=== PATIENT | male | born 1965 | race Caucasian/White ===

== ENCOUNTER 2018-09-17 05:29 | Observation (INO) | payer BC ==
--- NOTE | 2018-09-10 17:04 | HP ---
PREOPERATIVE HISTORY AND PHYSICAL: DATE OF ADMISSION/SURGERY: 09/17/18 DATE OF OFFICE VISIT: 09/05/18 ATTENDING SURGEON: Dr. Anastacia Ro.* (DICTATED BY GRACIELA LYNN) PROCEDURE: Left total shoulder replacement. CHIEF COMPLAINT: Left shoulder. HISTORY OF PRESENT ILLNESS: Jeffery is a 53-year-old male who presents to the clinic for complicated left shoulder history and pain due to osteoarthritis. He has failed conservative measures and therefore agreed to undergo a left total shoulder replacement with Dr. Ro on 09/17/18. PAST MEDICAL HISTORY: No current problems. PAST SURGICAL HISTORY: Left shoulder surgery x3. The patient denies prior complications with anesthesia. MEDICATIONS: None. ALLERGIES: No known drug allergies. FAMILY HISTORY: Denies pertinent family history. SOCIAL HISTORY: He lives with his spouse. He works as a proprietary trader. He denies tobacco use. He reports occasional alcohol consumption. He exercises regularly. He is right-hand dominant. REVIEW OF SYSTEMS: A 14-point review of systems was reviewed with the patient. Positive for current complaint, otherwise negative. Denies fever, chills, chest pain, shortness of breath, history of DVT or PE, history of bleeding disorder. PHYSICAL EXAMINATION GENERAL: A 53-year-old well-developed, well-nourished male, in no acute distress. Alert and oriented x3. Appropriate mood and affect. VITAL SIGNS: Height 74, weight 188, pulse 72, blood pressure 118/70, respiratory rate 12, BMI 24.1. HEENT: Normocephalic, atraumatic. PERRLA. Throat clear. NECK: Supple. PULMONARY: Lungs are clear to auscultation bilaterally. No wheezing, rhonchi, or rales. CARDIO: Regular rate and rhythm. S1, S2. No murmurs, gallops, or rubs. No edema. ABDOMEN: Positive bowel sounds. Soft, nontender. NEUROLOGIC: Alert and oriented x3. Cranial nerves are grossly intact. MUSCULOSKELETAL: Left upper extremity, skin is intact. No warmth or erythema. Nontender to palpation. Forward flexion to 140, abduction to 150, external rotation to 35, internal rotation to posterior iliac spine; +5/5 strength to rotator cuff testing without pain. Positive impingement, Speed, Srinivasan-Ar , Parmer, +2 radial pulse. Sensation intact to light touch distally. DIAGNOSTIC STUDIES/LAB DATA: Multi-view x-rays revealed severe glenohumeral joint [id number] osteoarthritis. IMPRESSION: Left shoulder osteoarthritis. PLAN: The patient is scheduled to undergo a left total shoulder replacement with Dr. Ro on 09/17/18. He will follow up 10 to 14 days postop for followup, suture removal, and x-rays. Percocet will be used for postop pain management. GRACIELA LYNN [id number]/[facility] #: [id number] MTDGissell
[~2018-09-17 05:29] MED LIST: Buffered Lidocaine 1% SYRIN* 1 ML/SYRINGE INTRADERM ONE; DiMENhydriNATE IV* 50 MG/ML VIAL IV PUSH PRN; Morphine VIAL* 4 MG/ML VIAL (1 ml vial) IV PRN; Naloxone* 0.4 MG/ML 1 ML VIAL IV PRN; Ondansetron TAB* 4 MG PO ONE; PROCHLORPERAZINE INJ 5 MG/ML 2 ML VIAL IV PRN; Scopolamine 1.5 mg* PATCH TRANSDERM PRN; oxyCODONE/Acetamin 5/325 MG* TAB PO PRN
[2018-09-17] MEDS ORDERED: Dexamethasone TAB* 4 MG PO ONE (06:00)
[2018-09-17] MEDS ORDERED: Lactated Ringers 1000 ML Bag* 1,000 ML IV SCH ×2 (06:00→12:00)
[2018-09-17] MEDS ORDERED: Famotidine TAB* 20 MG PO ONE (06:00)
[2018-09-17] MEDS ORDERED: Gabapentin CAP(*) 300 MG PO ONE (06:00)
[2018-09-17] MEDS ORDERED: Ondansetron ODT TAB* 4 MG ONE (06:03)
[2018-09-17] MEDS ORDERED: Dexamethasone TAB* 4 MG ONE (06:04)
[2018-09-17] MEDS ORDERED: ceFAZolin 2 GM PREMIX in ORs 2 GM/50 ML BAG IVPB ONE (06:04)
[2018-09-17] MEDS ORDERED: Famotidine TAB* 20 MG ONE (06:04)
[2018-09-17] MEDS ORDERED: Buffered Lidocaine 1% SYRIN* 1 ML/SYRINGE INTRADERM ONE (06:04)
[2018-09-17] MEDS ORDERED: Gabapentin CAP(*) 300 MG ONE ×2 (06:04→06:16)
[2018-09-17 06:44] LABS: Urine Appearance Clear; Urine Bilirubin Negative (Negative); Urine Blood Negative (Negative); Urine Color Straw; Urine Glucose Negative (Negative); Urine Ketones Negative (Negative); Urine Nitrite Negative (Negative); Urine Protein Negative (Negative); Urine Specific Gravity 1.005 (1.010-1.030); Urine Urobilinogen Negative (Negative)
[2018-09-17] MEDS ORDERED: Ropivacaine* 2 MG/ML 20 ML VIAL (0.2%) ONE (06:45)
[2018-09-17] MEDS ORDERED: KETAMINE HCL* 50 MG/ML 10 ML VIAL ONE (06:55)
[2018-09-17] MEDS ORDERED: Midazolam* 1 MG/ML 5 ML VIAL (5 MG) ONE (06:55)
[2018-09-17] MEDS ORDERED: Atracurium* 10 MG/ML 10 ML VIAL ONE (06:55)
[2018-09-17] MEDS ORDERED: fentaNYL* 50 MCG/ML 5 ML VIAL (250 MCG VIAL) ONE (06:55)
[2018-09-17] MEDS ORDERED: EPHEDrine (Pressors)* 50 MG/ML VIAL ONE (08:18)
[2018-09-17] MEDS ORDERED: Glycopyrrolate IV* 0.2 MG/ML 1 ML VIAL ONE ×2 (08:18→09:23)
[2018-09-17] MEDS ORDERED: Propofol* 10 MG/ML 20 ML BTL ONE (08:18)
[2018-09-17] MEDS ORDERED: Ketorolac INJ* 30 MG/ML 1 ML VIAL ONE (08:18)
[2018-09-17] MEDS ORDERED: Morphine VIAL* 10 MG/ML 1 ML VIAL ONE (08:53)
[2018-09-17] MEDS ORDERED: Neostigmine Methylsulfate* 1 MG/ML 10 ML VIAL (1 mg/ml) ONE (09:23)
[2018-09-17] MEDS ORDERED: Ondansetron INJ* 2 MG/ML VIAL IV PRN (11:13)
[2018-09-17] MEDS ORDERED: Ondansetron ODT TAB* 4 MG PO PRN (11:13)
[2018-09-17] MEDS ORDERED: traZODone TAB* 50 MG TAB PO PRN (11:13)
[2018-09-17] MEDS ORDERED: diPHENhydraMINE PO* 25 MG PO PRN (11:13)
[2018-09-17] MEDS ORDERED: diPHENhydraMINE IV* 50 MG/ML 1 ml VIAL (BENADRYL) IV PRN (11:13)
[2018-09-17] MEDS ORDERED: Bisacodyl SUPP* 10 MG SUPP PR PRN (11:13)
[2018-09-17] MEDS ORDERED: Cyclobenzaprine TAB* 10 MG PO PRN (11:13)
[2018-09-17] MEDS ORDERED: Morphine VIAL* 4 MG/ML VIAL (1 ml vial) IV PRN (11:13)
[2018-09-17] MEDS ORDERED: oxyCODONE/Acetamin 5/325 MG* TAB PO PRN ×2 (11:13)
[2018-09-17] MEDS ORDERED: Magnesium Hydroxide LIQ* 30 ML UDC PO PRN (11:13)
[2018-09-17] MEDS ORDERED: Polyethylene Glycol 3350* 17 GM PACKET PO PRN (11:13)
[2018-09-17] MEDS ORDERED: oxyCODONE TAB* 5 MG TAB PO PRN (11:13)
[2018-09-17] MEDS ORDERED: fentaNYL* 50 MCG/ML 2 ML VIAL (100 MCG VIAL) ONE (11:47)
[2018-09-17] MEDS: fentaNYL* 50 MCG/ML 2 ML VIAL (100 MCG VIAL) IV PRN ×2 (11:48→12:11)
[2018-09-17] MEDS: Acetaminophen TAB* 325 MG PO SCH ×2 (14:42→21:34)
--- NOTE | 2018-09-17 14:57 | OP ---
CC: PCP, Kehinde Rosen MD * DATE OF OPERATION: 09/17/18 - ROOM #349 DATE OF : 61 SURGEON: Anastacia Ro MD ASSISTANTS: GRACIELA Hathaway and Yane aMldonado. PRE-OP DIAGNOSIS: Left shoulder end-stage glenohumeral arthritis with intact rotator cuff. POST-OP DIAGNOSIS: Left shoulder end-stage glenohumeral arthritis with intact rotator cuff. OPERATIVE PROCEDURE: Left total shoulder arthroplasty and open biceps tenodesis. INDICATIONS: Jeffery Puente is a 53-year-old male, who has persistent shoulder pain. He has failed conservative management. He has history of previous surgery on the shoulder. He has significant deformity and difficulties with activities of daily living. Risks and benefits of surgery were discussed at length and included, but are not limited to bleeding, infection; damage to nerves, vessels, surrounding structures; wound nonhealing, persistent pain, need for further surgery, scarring, stiffness, fracture, dislocation, risk of dvt, incomplete relief of symptoms, risks of anesthesia. IMPLANTS USED: Tornier Simpliciti size 50 cobalt-chrome head and nucleus size 3 , Aequalis PerFORM CortiLoc pegged size 35. ESTIMATED BLOOD LOSS: 200 cc. COMPLICATIONS: None. DESCRIPTION OF PROCEDURE: The patient was greeted in the preoperative area by the attending surgeon. Correct extremity was marked and consent was confirmed. The patient was brought back to the operating suite where he was placed in supine position on the operating table. He then underwent general anesthesia and endotracheal intubation, after which he was appropriately positioned in lazy -beach chair position. All bony prominences were padded. The left arm was prepped and draped with chlorhexidine soap, scrub, and alcohol wipe and a final prep with ChloraPrep. After appropriate surgical pause indicating site, side, procedure, administration of antibiotics, the deltopectoral incision was made with a 15- blade. Soft tissues were carefully dissected to expose the deltopectoral fascia. Once the cephalic vein was identified, it was taken laterally with the deltoid. The clavipectoral fascia was identified and then carefully released. The coracoid was identified. The short head of the biceps was then carefully mobilized laterally. The pec was identified as it inserted into the humerus. The proximal 1 cm was then released. The biceps was identified and then tenodesed using heavy nonabsorbable sutures, tenotomized proximal to that and followed into the joint itself. The circumflex humeral vessels were identified and suture ligated for hemostasis. The biceps was followed into the joint. At this point, the subscap was identified and was released in a subscap peel-type fashion along with the capsule. This was released and the humerus was externally rotated gently. There were large anterior and inferior osteophytes with significant deformity of the head. The soft tissues were very tight and scarred in. As the subscap was peeled, it revealed osteophytes. It was difficult to externally rotate past about 40 degrees; therefore, the osteotome was used to release the osteophytes inferiorly to help expose the neck. As this was done, the head was easier to externally rotate. There were grade-4 changes to the humeral head and the glenoid. The head was then carefully dislocated and exposed fully. Any remaining osteophytes were removed using the rongeur. The cutting guide set at 135 degrees was then placed and the cut was marked with care to protect the rotator cuff, which was intact. He did have small partial-thickness tearing of the supraspinatus tendon, but the remainder of the cuff looked to be in good condition. The sagittal saw was then used to make the cut. The bone quality was very good. At this point, the rongeur was used to remove any osteophytes. The Simpliciti guide was centered. A size 2 was chosen and then center peg was drilled. This was then reamed with a planer , at which point the #1 Nucleus was then impacted into position and then the protection base plate was placed. After this, the attention was directed to the glenoid. The head was brought back into the joint and retractors were placed to expose the glenoid. There was significant amount of tight tissues with some deformity as well of the glenoid. Osteophytes were then carefully removed. The labrum was removed beginning superiorly, anteriorly and inferiorly to expose the entire glenoid. The center of the glenoid was then marked. The subscap was also released of adhesions beginning superior, middle and inferior glenohumeral ligament with care to prevent any damage to the nerves or vessels. Once the subscap was fully mobilized, the anterior neck retractor was used to expose the anterior aspect of the glenoid. After this was done, some of the posterior capsule had to be released because of significant contracture of the shoulder itself. There was posteriorly based wear. At this point, the guide pin was placed in the center of the glenoid and drilled, placed with good purchase. The reamer was then used to ream. A size-medium reamer was thought to fit better, but did not ream well and I was worried that it would take more wear anteriorly; therefore, a small reamer was chosen, which fitted and reamed a little bit better, therefore it was reamed. The center drill was then drilled with 8-mm drill. The quality of the glenoid was very hard bone, so initially it needed to be drilled with 6.5-mm drill and then the 8-mm drill. After this was done, the 35 guide was then placed. The peg holes were then drilled and a trial was then placed. A trial was placed. At this point, the final implant was brought into the field and chosen. The peg holes were then cemented and the final poly was placed. The initial poly was discarded after it was placed might have been defective and it did not stay; therefore, a second poly was then chosen and placed with excellent purchase. Once the implant was placed, it was held in position to help for the cement to dry. After which, the head was brought back to the joint and attention was directed back to the head. The protection plate was removed and the trial was then placed. Initially, a size 52 was placed, which was found to be a little bit too big and may overstuff; therefore, a size 50 was chosen and found to have better fit. The shoulder was able to be forward flexed to 160, externally rotate to 90. Subscap tension was acceptable. At this point, the final size 50 was chosen. The trial implants were removed. #5 Ethibond sutures were passed along the lesser tuberosity for later subscap repair beginning inferiorly and then middle and superiorly. The #5 Ethibond was used. The final implant was then brought into the field and impacted in position. It was well seated. The #50 head was then placed and impacted and was found to be well fit. Shoulder was then reduced and appropriate amount of shuck was obtained. At this point, the wounds were then copiously irrigated with sterile saline. The subscap was then closed with the previously passed sutures of #5 Ethibond in a horizontal mattress as well as some were in Mj-David type configuration. The interval was then also closed with #2 Ethibond sutures. The implant was completely covered. The wounds were then copiously irrigated with sterile saline. The shoulder was taken through range of motion again, external rotation to about 70 degrees, forward flexion to about 160. Wounds were irrigated again. The deltopectoral area was closed with #2 Ethibond suture in interrupted fashion. Skin was closed with 3-0 Monocryl for subcuticular as well as skin closure. The wound was then injected with 0.25% Marcaine plain. Sterile dressings were applied. Cryo/Cuff and UltraSling were applied. He was awoken from anesthesia and transferred to the PACU in stable condition. POSTOPERATIVE PLAN: He will be in the hospital overnight. He will be discharged on pain medication. DVT prophylaxis was considered, but deferred. While in- house, he will be on low molecular weight heparin. He will obtain x-rays in the PACU. He will be on antibiotics for 24 hours postop. Potential discharge tomorrow on postop day 1. I will see the patient back in 10 to 14 days after surgery. [id number]/[facility] #: [id number] SUSANNA
[2018-09-17] MEDS: ceFAZolin 1 GM ADVAN(*) 1 GM in NS 0.9% 50 ML* 50 ML IVPB SCH ×2 (15:56→23:50)
--- NOTE | 2018-09-17 19:48 | OP ---
CANCELED DICTATION. [id number]/[facility] #: [id number] MTDD
--- NOTE | 2018-09-17 20:43 | PN ---
Progress Note - Progress Note Date of Service: 09/17/18 Note: Pt seen and examined at 4:30 Pt lying in bed comfortable. Pain about 5/10. No SOB or CP. No numbness or tingling. Sling in place AFVSS NAD. comfortable in bed. Able to flex/ext digits. brisk cap refill. sensate to light touch grossly. xrays reviewed and acceptable A/P POD#0 from L TSA continue sling for 6 weeks pendulums and active ROM of elbow wrist and hand post op abx DVT ppx while in house potential d/c tomorrow f/u 14 days
[2018-09-17] MEDS: Docusate CAP* 100 MG PO SCH (21:35)
[2018-09-18] MEDS: traMADol TAB* 50 MG PO PRN ×2 (05:17→11:31)
[2018-09-18] MEDS: Acetaminophen TAB* 325 MG PO SCH (05:19)
[2018-09-18 06:12] LABS: Hematocrit 34 % (42-52); Hemoglobin 11.8 g/dl (14.0-18.0); Mean Platelet Volume 9.1 fL (7.4-10.4); Platelet Count 162 10^3/ul (150-450)
[2018-09-18 06:29] LABS: BUN/Creatinine Ratio 20.9 (8-20); Calcium 8.6 mg/dL (8.6-10.3); EGFR Non-African American 69.5 (>60)
[2018-09-18] MEDS: Docusate CAP* 100 MG PO SCH (07:39)
[2018-09-18] MEDS: ceFAZolin 1 GM ADVAN(*) 1 GM in NS 0.9% 50 ML* 50 ML IVPB SCH (07:39)
--- NOTE | 2018-09-18 11:25 | PN ---
Progress Note - Progress Note Date of Service: 09/18/18 SOAP: Subjective: []Patient was seen and examined at bedside. He feels well with minimal shoulder pain and desires DC home. No CP, SOB, dizziness, nausea. Objective: []General: NAD. comfortable in bed. LUE: Sling in place, dressing CDI, no drain. Able to flex/ext digits and wrist. Capillary refill less than two seconds distally, radial pulse 2+, Sensation intact to light touch throughout extremity and digits. Assessment: []POD 1 sp left total shoulder arthroplasty Plan: []continue sling for 6 weeks No active or passive ROM of shoulder, Nonweightbearing left shoulder. Active Range of motion of elbow wrist and hand okay Follow up with Dr Ro in 14 days DC to home today Vital Signs Temp 98.8 F 09/18/18 07:38 Pulse 65 09/18/18 07:38 Resp 16 09/18/18 07:56 BP 124/76 09/18/18 07:38 Pulse Ox 96 09/18/18 07:38 Intake & Output 09/17/18 09/18/18 09/18/18 18:59 06:59 18:59 Intake Total 2004 1570 55 Output Total 0 600 Balance 2004 970 55 Intake: IV Fluids 2004 950 55 LR 1900 950 NS 50ML, Cefazolin 2G 50 IVPB 110 ABX - CEFAZOLIN 110 Oral 0 510 Output: Urine 0 600 Laboratory Last Values Hgb 11.8 g/dl (14.0-18.0) L 09/18/18 05:47 Hct 34 % (42-52) L 09/18/18 05:47 Plt Count 162 10^3/ul (150-450) 09/18/18 05:47 MPV 9.1 fL (7.4-10.4) 09/18/18 05:47 Sodium 137 mmol/L (135-145) 09/18/18 05:47 Potassium 4.0 mmol/L (3.5-5.0) 09/18/18 05:47 Chloride 105 mmol/L (101-111) 09/18/18 05:47 Carbon Dioxide 26 mmol/L (22-32) 09/18/18 05:47 Anion Gap 6 mmol/L (2-11) 09/18/18 05:47 BUN 23 mg/dL (6-24) 09/18/18 05:47 Creatinine 1.10 mg/dL (0.67-1.17) 09/18/18 05:47 Est GFR ( Amer) 84.1 (>60) 09/18/18 05:47 Est GFR (Non-Af Amer) 69.5 (>60) 09/18/18 05:47 BUN/Creatinine Ratio 20.9 (8-20) H 09/18/18 05:47 Glucose 120 mg/dL (70-100) H 09/18/18 05:47 Calcium 8.6 mg/dL (8.6-10.3) 09/18/18 05:47 Urine Color Straw 09/17/18 06:11 Urine Appearance Clear 09/17/18 06:11 Urine pH 7.0 (5-9) 09/17/18 06:11 Ur Specific [place] 1.005 (1.010-1.030) L 09/17/18 06:11 Urine Protein Negative (Negative) 09/17/18 06:11 Urine Ketones Negative (Negative) 09/17/18 06:11 Urine Blood Negative (Negative) 09/17/18 06:11 Urine Nitrate Negative (Negative) 09/17/18 06:11 Urine Bilirubin Negative (Negative) 09/17/18 06:11 Urine Urobilinogen Negative (Negative) 09/17/18 06:11 Ur Leukocyte Esterase Negative (Negative) 09/17/18 06:11 Urine Glucose Negative (Negative) 09/17/18 06:11
[2018-09-18] MEDS ORDERED: Enoxaparin(*) 40 MG/0.4 ML SYR SUBCUT SCH (12:00)
[2018-09-18 13:06] VITALS: BP 140/83
--- NOTE | 2018-09-19 02:33 | DS ---
DISCHARGE SUMMARY: DATE OF ADMISSION: 09/17/18 DATE OF SURGERY: 09/17/18 DATE OF DISCHARGE: 09/18/18 SURGEON/PROVIDER: Dr. Anastacia Ro.* (DICTATED BY GRACIELA OWUSU) PRE-OP DIAGNOSIS: Left shoulder end-stage glenohumeral arthritis of intact rotator cuff. OPERATIVE PROCEDURE: Left total shoulder arthroplasty and open biceps tenodesis. INDICATIONS AND HISTORY: Jeffery Puente is a 53-year-old male who has persistent shoulder pain. He has failed conservative management. He has a history of previous surgery on his shoulder. He has significant deformity and difficulties with activities of daily living. He elected to undergo a left total shoulder arthroplasty and open biceps tenodesis. HOSPITAL COURSE: Patient was admitted to [facility] on 09/17/18. He underwent a left total shoulder arthroplasty and open biceps tenodesis without complications. Postop day #1, he was well appearing and in no acute distress. Sling was in place. Dressing clean, dry, and intact. No drains. Able to flex and extend digits and wrists. Capillary refill less than 2 seconds distally. Radial pulse 2+. Sensation intact to light touch throughout extremity and digits. Vital signs: Temperature 98.8, pulse 65, respiratory rate 16, blood pressure 124/76, pulse ox 96. Hemoglobin 11.8, hematocrit 34. Sodium 137, potassium 4.0. Patient was deemed to be medically and orthopedically stable for discharge home. DISCHARGE MEDICATIONS: Include: 1. Acetaminophen 975 p.o. q.8 hours p.r.n. 2. Docusate 100 mg p.o. b.i.d. p.r.n. constipation. 3. Percocet 5/325 one to two tabs every 4 to 6 hours as needed for pain, max to a dose of 8. DISCHARGE PLAN: Patient will be discharged to home. Continue sling at all times for 6 weeks, nonweightbearing for operative extremity, no range of motion of the shoulder; however, may continue elbow, wrist and hand range of motion. Wound care, okay to shower after the third postoperative day, do not submerge the wound. Pain control, Percocet 5/325 one to two tabs by mouth every 4 to 6 hours, max of 8 per day. Call orthopedic office for increased drainage, redness , increased pain or fever. Follow up with Dr. Ro in 14 days. BASSEM PADILLA, GRACIELA [id number]/[facility] #: [id number] [facility] MEDICAL CENTERGissell
[2018-09-20] MEDS ORDERED: Scopolamine PATCH Remove* 1 NOTE MISC PATCH OFF ONE (05:31)
== END 2018-09-18 13:20 | disposition home or self-care (01) ==
LOC: INTOOBSV 05:29 → AA 05:29 → SSU 13:09
PROVIDERS: ADMIT Orthopaedic Surgery; ATTEND Orthopaedic Surgery
DX: M25.512 Pain in left shoulder (principal); M19.012 Primary osteoarthritis, left shoulder; K21.9 Gastro-esophageal reflux disease without esophagitis; Z68.25 Body mass index [BMI] 25.0-25.9, adult
CPT/HCPCS: 36415; 80048; 81003; 85014; 85018; 85049; 96374; 96375; A9270-GY; G0378; G8987-GO-CJ; G8988-GO-CJ; G8989-GO-CJ; J0690; J1650; J1885; J2250; J2270; J2704; J2710; J2795; J3010; J8540

== ENCOUNTER 2019-06-10 11:30 | Observation (INO) | payer BC ==
--- NOTE | 2019-06-08 13:10 | HP ---
PREOPERATIVE HISTORY AND PHYSICAL: DATE OF ADMISSION/SURGERY: 06/10/19 DATE OF OFFICE VISIT: 06/02/19 ATTENDING SURGEON: Dr. Anastacia Ro.* (DICTATED BY GRACIELA LYNN) PROCEDURE: Left shoulder revision of glenoid versus conversion to reverse. CHIEF COMPLAINT: Left shoulder pain. HISTORY OF PRESENT ILLNESS: Jeffery is a 54-year-old male who presents to the clinic status post left total shoulder replacement. He is having pain and has failed conservative measures, therefore, agreed to undergo left shoulder revision with a glenoid versus conversion to reverse on 06/10/[address] Ro. PAST MEDICAL HISTORY: No current problems. PAST SURGICAL HISTORY: Left shoulder surgery x3 and a left total shoulder reverse. The patient denies prior complications with anesthesia. MEDICATIONS: Amoxicillin 500 mg 1 by mouth 1 hour prior to dental procedures. ALLERGIES: No known drug allergies. FAMILY HISTORY: Denies pertinent family history. Denies family history of DVT or PE. SOCIAL HISTORY: He lives with his spouse. He works as a utility tractor operator. He denies tobacco use. He reports occasional alcohol consumption. He exercises regularly. He is right hand dominant. REVIEW OF SYSTEMS: A 14-point review of systems was reviewed with the patient. Positive for current complaint, otherwise negative. Denies fever, chills, chest pain, shortness of breath, history of DVT or PE, history of bleeding disorder. PHYSICAL EXAMINATION GENERAL: A 54-year-old well-developed, well-nourished male, in no acute distress. VITAL SIGNS: Height 74, weight 188, pulse 56, blood pressure 130/72, temperature 96.8, BMI 24.1. HEENT: Normocephalic, atraumatic. PERRL. Throat clear. NECK: Supple. PULMONARY: Lungs are clear to auscultation bilaterally. No wheezing, rhonchi, or rales. CARDIO: Regular rate and rhythm. S1, S2. No murmurs, gallops, or rubs. No edema. ABDOMEN: Positive bowel sounds. Soft, nontender. NEURO: Alert and oriented x3. Cranial nerves grossly intact. MUSCULOSKELETAL: Left upper extremity: Skin is intact. Well-healed surgical incision. No warmth or erythema. Forward flexion to 90, abduction 90, passive to 140. Full range of motion of the elbow, wrist, and hand. +2 radial pulse. Sensation intact to light touch distally. IMPRESSION: Painful left total shoulder replacement. PLAN: The patient is scheduled to undergo a left shoulder revision of glenoid versus conversion to reverse with Dr. Ro on 06/10/19. He will follow up in 10 to 14 days postop for followup and suture removal. Oxycodone will be used for postop pain management. GRACIELA LYNN [id number]/[facility] #: [id number] MTDD
[~2019-06-10 11:30] MED LIST changes: -DiMENhydriNATE IV* 50 MG/ML VIAL IV PUSH PRN; +Famotidine IV* 10 MG/ML 2 ML (20 mg) IV ONE; +Lactated Ringers 1000 ML Bag* 1,000 ML IV SCH; -Morphine VIAL* 4 MG/ML VIAL (1 ml vial) IV PRN; -Naloxone* 0.4 MG/ML 1 ML VIAL IV PRN; -Ondansetron TAB* 4 MG PO ONE; -PROCHLORPERAZINE INJ 5 MG/ML 2 ML VIAL IV PRN; -Scopolamine 1.5 mg* PATCH TRANSDERM PRN; -oxyCODONE/Acetamin 5/325 MG* TAB PO PRN
[2019-06-10] MEDS ORDERED: ceFAZolin 2 GM in NS PREMIX(*) 2 GM/100 ML BAG IVPB ONE (12:03)
[2019-06-10] MEDS ORDERED: Famotidine IV* 10 MG/ML 2 ML (20 mg) ONE (12:03)
[2019-06-10] MEDS ORDERED: Bupivacaine 0.25% SDV PF* 10 ML VIAL INJ ONE (13:20)
[2019-06-10] MEDS ORDERED: Succinylcholine* 20 MG/ML 10 ML VIAL ONE (13:28)
[2019-06-10] MEDS ORDERED: fentaNYL* 50 MCG/ML 2 ML VIAL (100 MCG VIAL) ONE ×2 (13:31→13:42)
[2019-06-10] MEDS ORDERED: Midazolam* 1 MG/ML 5 ML VIAL (5 MG) ONE (13:31)
[2019-06-10] MEDS ORDERED: DiMENhydriNATE IV* 50 MG/ML VIAL IV PUSH PRN (13:54)
[2019-06-10] MEDS ORDERED: Naloxone* 0.4 MG/ML 1 ML VIAL IV PRN (13:54)
[2019-06-10] MEDS ORDERED: HYDROmorphone INJ1* 1 MG/ML SYRINGE IV PRN (13:54)
[2019-06-10] MEDS ORDERED: oxyCODONE TAB* 5 MG TAB PO PRN (13:54)
[2019-06-10] MEDS ORDERED: KETAMINE HCL* 50 MG/ML 10 ML VIAL ONE (13:55)
[2019-06-10] MEDS ORDERED: Gabapentin CAP(*) 100 MG PO ONE (13:55)
[2019-06-10] MEDS ORDERED: DiMENhydriNATE IV* 50 MG/ML VIAL ONE (14:14)
[2019-06-10] MEDS ORDERED: EPHEDrine (Pressors)* 50 MG/ML VIAL ONE (14:45)
[2019-06-10] MEDS ORDERED: Lidocaine 2% PF * 5 ML VIAL ONE (14:45)
[2019-06-10] MEDS ORDERED: Dexamethasone IV* 4 MG/ML 1 ML (4 MG) ONE (14:45)
[2019-06-10] MEDS ORDERED: Propofol* 10 MG/ML 20 ML BTL ONE ×2 (14:45→17:27)
[2019-06-10] MEDS ORDERED: Ketorolac INJ* 30 MG/ML 1 ML VIAL ONE (14:45)
[2019-06-10] MEDS ORDERED: Ondansetron INJ* 2 MG/ML VIAL ONE (14:45)
[2019-06-10] MEDS ORDERED: Rocuronium* 10 MG/ML VIAL ONE ×2 (15:04→16:04)
[2019-06-10] MEDS ORDERED: HYDROmorphone INJ1* 1 MG/ML SYRINGE ONE (16:25)
[2019-06-10] MEDS ORDERED: Morphine INJ* 2 MG/ML 1 ML SYRINGE (TWO MG - NEW SYRINGE VERSION) IV PRN (18:01)
[2019-06-10] MEDS ORDERED: Ondansetron INJ* 2 MG/ML VIAL IV PRN (18:01)
[2019-06-10] MEDS ORDERED: Ondansetron ODT TAB* 4 MG PO PRN (18:01)
[2019-06-10] MEDS ORDERED: diPHENhydraMINE PO* 25 MG PO PRN (18:01)
[2019-06-10] MEDS ORDERED: Magnesium Hydroxide LIQ* 30 ML UDC PO PRN (18:01)
[2019-06-10] MEDS ORDERED: Cyclobenzaprine TAB* 10 MG PO PRN (18:01)
[2019-06-10] MEDS ORDERED: diPHENhydraMINE IV* 50 MG/ML 1 ml VIAL (BENADRYL) IV PRN (18:01)
[2019-06-10] MEDS ORDERED: traMADol TAB* 50 MG PO PRN (18:01)
[2019-06-10] MEDS ORDERED: Lactated Ringers 1000 ML Bag* 1,000 ML IV SCH (19:00)
[2019-06-10] MEDS: oxyCODONE TAB* 5 MG TAB PO PRN (20:20)
[2019-06-10] MEDS: Docusate CAP* 100 MG PO SCH (20:20)
[2019-06-10] MEDS: Magnesium Hydroxide LIQ* 30 ML UDC PO SCH (20:22)
[2019-06-10] MEDS: ceFAZolin 1 GM ADVAN(*) 1 GM in NS 0.9% 50 ML* 50 ML IVPB SCH (22:28)
[2019-06-10] MEDS: Acetaminophen TAB* 325 MG PO SCH (22:32)
[2019-06-11] MEDS: oxyCODONE TAB* 5 MG TAB PO PRN ×3 (01:07→11:48)
[2019-06-11 05:35] LABS: Hematocrit 34 % (42-52); Hemoglobin 11.8 g/dL (14.0-18.0); Mean Platelet Volume 8.6 fL (7.4-10.4); Platelet Count 164 10^3/uL (150-450)
[2019-06-11] MEDS: Acetaminophen TAB* 325 MG PO SCH (06:00)
[2019-06-11] MEDS: ceFAZolin 1 GM ADVAN(*) 1 GM in NS 0.9% 50 ML* 50 ML IVPB SCH ×2 (06:01→11:50)
[2019-06-11 06:25] LABS: BUN/Creatinine Ratio 14.3 (8-20); Calcium 8.5 mg/dL (8.6-10.3); EGFR African American 82.1 (>60); EGFR Non-African American 67.8 (>60); Potassium 4.6 mmol/L (3.5-5.0)
[2019-06-11] MEDS: Docusate CAP* 100 MG PO SCH (08:28)
[2019-06-11] MEDS: Magnesium Hydroxide LIQ* 30 ML UDC PO SCH (08:28)
[2019-06-11] MEDS ORDERED: Vitamin THERAPEUTIC TAB PO SCH (09:00)
--- NOTE | 2019-06-11 09:40 | PN ---
Progress Note - Progress Note Date of Service: 06/11/19 SOAP: Subjective: []Pt seen at bedside. Feels well, pain is well controlled. Denies CP, SOB, dizziness, nausea. Objective: []Gen: Appears well, NAD LUE: Left shoulder drain removed with tip intact, tolerated well by the patient. f/e at wrist, digits intact. Okay, thumbs up intact. Sensation intact to light touch throughout LUE. Radial pulse 2+, cap refill less than two seconds distally. Assessment: []L shoulder revision of glenoid POD1 Plan: []NWB LUE PT/OT lovenox in house, no DVT prophy at DC DC home today Vital Signs Temp 97.8 F 06/11/19 07:51 Pulse 57 06/11/19 07:51 Resp 16 06/11/19 08:33 BP 114/72 06/11/19 07:51 Pulse Ox 97 06/11/19 07:51 Intake & Output 06/10/19 06/11/19 06/11/19 18:59 06:59 18:59 Intake Total 3300 2710 1100 Output Total 400 1400 725 Balance 2900 1310 375 Weight 183 lb 6.4 oz Intake: IV Fluids 3300 110 990 ABX - CEFAZOLIN 110 LR 3300 990 IVPB 110 ABX - CEFAZOLIN 110 Oral 2600 Output: Urine 1400 725 Brown 300 Estimated Blood Loss 100 Laboratory Last Values Hgb 11.8 g/dL (14.0-18.0) L 06/11/19 05:28 Hct 34 % (42-52) L 06/11/19 05:28 Plt Count 164 10^3/uL (150-450) 06/11/19 05:28 MPV 8.6 fL (7.4-10.4) 06/11/19 05:28 Sodium 139 mmol/L (135-145) 06/11/19 05:28 Potassium 4.6 mmol/L (3.5-5.0) 06/11/19 05:28 Chloride 107 mmol/L (101-111) 06/11/19 05:28 Carbon Dioxide 28 mmol/L (22-32) 06/11/19 05:28 Anion Gap 4 mmol/L (2-11) 06/11/19 05:28 BUN 16 mg/dL (6-24) 06/11/19 05:28 Creatinine 1.12 mg/dL (0.67-1.17) 06/11/19 05:28 Est GFR ( Amer) 82.1 (>60) 06/11/19 05:28 Est GFR (Non-Af Amer) 67.8 (>60) 06/11/19 05:28 BUN/Creatinine Ratio 14.3 (8-20) 06/11/19 05:28 Glucose 118 mg/dL (70-100) H 06/11/19 05:28 Calcium 8.5 mg/dL (8.6-10.3) L 06/11/19 05:28
--- NOTE | 2019-06-11 09:49 | DS ---
Orthopedic Discharge Summary - Discharge Summary Date of Admission:06/10/19 Date of Discharge: 06/11/19 Date of Surgery: 06/10/19 Attending Orthopedic Provider: Dr Small Pre-operative Diagnosis: Left shoulder pain Operative Procedure: left shoulder revision of glenoid Disposition of Patient: home Condition of Patient: stable History: JUAN MORALES is a 54 year old M with left shoulder pain Hospital Course: JUAN was admitted to [facility] on 06/10/19. Patient underwent a left shoulder revision of glenoid without complication followed by a brief recovery in PACU and transfer to the Short Stay Surgical Unit in stable condition. Our physical therapy and occupational therapy particiapte in his care. Post-op day 1: patient was alert and in no acute distress. Dressing was clean, dry and intact. Drain was pulled with tip intact. Operative extremity wrist and digit f/e intact, NVI distally. Stable for DC home. Home Medications Medication Instructions Recorded Confirmed Type Acetaminophen TAB* [Tylenol TAB*] 975 mg PO Q8HR tab 06/11/19 Rx Docusate CAP* [Colace Cap*] 100 mg PO BID cap 06/11/19 Rx oxyCODONE TAB* [Roxycodone TAB 5 5 mg PO Q4H PRN tab 06/11/19 Rx mg*] Orthopedic Total Shoulder Instruction Non-weight bearing for operative upper extremity. No active range of motion at the shoulder. Continue elbow, wrist, and hand pendulums shown by PT . Wound Care: OK to shower after third post- operative day, no bathing/ swimming / submerging wound. Use gentle soap, pat dry. Cover with gauze, HANH wrap or tape. Pain control with:oxycodone 5 mg 1 tab for moderate pain -2 tabs for severe pain by mouth every 4-6 hours max of 8 per day. Diet: Regular diet, increase fluids and fiber to prevent constipation. Continue to use stool softeners, call office if no bowel motion within 48 hours. Call Orthopedic office for increased drainage, redness, increased pain, or fever. Go to ER with shortness of breath or chest pain. - Antibiotics required prior to any dental work Please call our office with any questions or concerns ([phone] Call for appt with Dr Small in 14 days, suture removal at this time
--- NOTE | 2019-06-11 11:16 | PN ---
Progress Note - Progress Note Date of Service: 06/11/19 Note: Pt seen and examined at 6 am. Pain controlled. Some drainage from wound overnight. Drain in place. AFVSS NAD. dressing in place. SILT grossly distally. able to flex/ext digits. Xrays reviewed and acceptable A/P POD#1 from revision of left total shoulder 24 hours of post op abx drain d/c today home today analgesia will see in 10-14 days
[2019-06-11 11:21] VITALS: BP 105/64
[2019-06-11] MEDS ORDERED: Enoxaparin(*) 40 MG/0.4 ML SYR SUBCUT SCH (12:00)
--- NOTE | 2019-06-11 15:57 | OP ---
DATE OF OPERATION: 06/10/19 - ROOM #346 DATE OF : 61 SURGEON: Anastacia Ro MD ROUTE SALESMAN: GRACIELA Hathaway. Ui Developer was needed for the entirety of the case to help with positioning, retraction, and was utilized throughout all portions of the case. ANESTHESIOLOGIST: Dr. Foster. ANESTHESIA: General. PRE-OP DIAGNOSIS: Left shoulder failed anatomic total shoulder. POST-OP DIAGNOSIS: Left shoulder failed anatomic total shoulder. OPERATIVE PROCEDURE: Left shoulder revision of the glenoid and humeral component of his left anatomic shoulder as well as biopsy culture. IMPLANTS USED: Aequalis Perform plus Cortiloc augmented glenoid angle 25 degrees and humeral head size 48 mm and 2 Helicoil, this is the Steen [employer] Nephew and 2 Multi-Fixes. OUTPUT: Drain x1. SPECIMENS: Intra-articular specimens were sent to make sure that there is no evidence of infection. INDICATIONS: Jeffery Puente is a 54-year-old male who underwent previous anatomic total shoulder replacement in September of this year. He did well until about 5 to 6 months postop and he decreased his activities and may have been weightlifting and started having pain. He has failed conservative management. We worked him out to make sure the rotator cuff had not been torn, which was confirmed under ultrasound. In the CT scan, there is some evidence of glenoid component loosening. 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 After extensive discussion of risks and benefits of surgery versus nonoperative treatment, he has elected to proceed with surgical treatment. We talked about risks, which include converting to a reverse, incomplete relief of symptoms, risk of anesthesia, need for surgery, risk from infection, damage to nerves, vessels, or surrounding structures, wound nonhealing, persistent pain, need for surgery, stiffness, persistent pain. He has elected to proceed with surgical treatment. DESCRIPTION OF PROCEDURE: The patient was greeted in the preoperative area by the attending surgeon. Correct extremity was marked and consent was confirmed. The patient then brought back to the operating suite. He was placed in supine position on the operating table, underwent general anesthesia with endotracheal intubation after which he was appropriately positioned in the lazy beach chair position. The left arm was then prepped and draped in the usual sterile fashion, beginning with chlorhexidine soap scrub and alcohol wipe and final prep with ChloraPrep. After appropriate surgical pause indicating side, site, and procedure, administration of antibiotics, the previously made deltopectoral incision was then made. The soft tissues were carefully dissected. Care was taken to try to go through the scar possibly to not damage the deltoid. As the deltopectoral interval was identified, subdeltoid scar was carefully released. Retractors were placed, this did take time with some laborious. The pec was identified and proximal 1 cm or so was released. The bicipital groove was identified and the soft tissues were released proximally where tract and ended up releasing proximally to identify the subscap, this was then tagged with #5 Ethibond sutures. There was significant scar tissue both anteriorly under the coracoid space as well as deep. As this was released, the shoulder was gently externally rotated, he is very stiff. Preoperative motion was forward flexion to about 130 passively, abduction to about 50 passively, external rotation to about 30. As we were able to gently expose the shoulder, any excess bone spurs were released that previously size 50 head was then removed in its entirety and then attention was directed to the glenoid. The exposure of the glenoid did require lysis of adhesion with gentle manipulation. I was able to visualize the glenoid more seriously. There was evidence of rocking of the glenoid. Once the adhesions were removed and care was taken to try to move all the soft tissues and the scar tissue around it, the glenoid was removed in its entirety without much difficulty. There was evidence of the Cortiloc peg had bent. The previously drilled holes were then exposed using Bovie and electrocautery device. Decision was made to try a trial. Of course, we had to re-drill a peg holes. To do this I tried a guide to allow for a posterior augmented glenoid. I did require reaming a little bit of the glenoid face, so that I could see the screw holes better. We tried various guides to try to get exposure and to allow for the guide to be placed. Eventually, I was able to re-drill the previously drilled peg holes as well as the Cortiloc hole. The augmented trial was placed and found to be sitting ok. A size medium and small were trialed and both seemed similar in terms of movement and coverage. An augmented glenoid with a 25 degree augment was found to be appropriate. A trial head was then place and the shoulder was taken through range of motion. It was found to be acceptable and the glenoid did not lever out. The decision was made to use these implants and they were brought to the field. The glenoid was irrigated and dried thoroughly and the cement was mixed on the back table. All holes were injected with cement and the final trial was impacted into position and held until the cement cured. The final implant for the humerus was then impacted into position and the shoulder was reduced. The wounds were copiously irrigated. The subscap was reduced to the tuberosity. The rotator cuff was repaired with side to side sutures # 2 ethibond but the cuff needed to be required using implants. 2 healicoils were placed medially and the sutures were passed in a horizontal mattress configuration and tied down. The remaining sutures were then passed through two multifixes for double row fixation. The shoulder was taken through ROM. The wounds were then copiously irrigated. A drain was placed. The wounds were irrigated again and the deltopectoral interval was closed with #2 ethibond. The skin was closed in layers with 3-0 monocryl for subq and the skin with 3-0 nylon in a running fashion. The wounds were injected with .2% ropivocaine and sterile dressings were applied. The patient was awoken from anesthesia and transferred to the PACU in stable condition. POSTOPERATIVE Plans: He will be NWB. He will start PT in 4 weeks. No resistence for 4 months. Admitted for post operative pain control and monitoring due to drainage from the wound and drain placement. DVT prophylaxis was lovenox while in hospital but he may go home without specific medication due to no personal or family history. I will see the patient back in 10-14 days. [id number]/[facility] #: [id number] SUSANNA
[2019-06-12] MEDS ORDERED: Bisacodyl SUPP* 10 MG SUPP PR PRN (18:01)
== END 2019-06-11 13:10 | disposition home or self-care (01) ==
LOC: OR 11:30 → SSU 19:59
PROVIDERS: ADMIT Orthopaedic Surgery; ATTEND Orthopaedic Surgery
DX: S46.012A Strain of muscle(s) and tendon(s) of the rotator cuff of left shoulder, initial encounter (principal); M25.512 Pain in left shoulder; M75.42 Impingement syndrome of left shoulder; Z96.612 Presence of left artificial shoulder joint
CPT/HCPCS: 36415; 80048; 85014; 85018; 85049; 87070; 87073; 87205; 96374; A9270-GY; C1713; C1776; G0378; J0330; J0690; J1100; J1170; J1240; J1650; J1885; J2250; J2405; J2704; J3010; J3490